=== PATIENT | female | born 1950 | race Caucasian/White ===

== ENCOUNTER → 2016-12-15 | Outpatient (CLI) | payer BC ==
[~2016-12-15] MED LIST: NADO40TA20 PO
--- NOTE | 2016-12-15 10:04 | DIAGNOSTIC IMAGING REPORT ---
CHEST 2 VIEWS ROUTINE CLINICAL HISTORY: Cough, congestion. COMPARISON STUDY: No previous studies for comparison. FINDINGS: The patient is hyperinflated. There is no focal pulmonary consolidation. There is blunting of one of the posterior costophrenic angles. There is no failure. [ IMPRESSION: 1. Hyperinflation 2. Blunting of one of the posterior costophrenic angles 3. No evidence of focal pulmonary consolidation Electronically signed by: Esau Salcedo M.D. 12/15/2016 10:02 AM Dictated Date/Time: 12/15/2016 10:01 AM
== END | disposition home or self-care (01) ==
LOC: C.RAD 09:24
PROVIDERS: ATTEND Physician Assistant Medical
DX: J22 Unspecified acute lower respiratory infection (principal)